=== PATIENT | female | born 1975 | race Caucasian/White ===

== ENCOUNTER 2020-08-26 00:02 | Emergency (ER) | payer OTHER ==
[~2020-08-26] VITALS: Ht 157.5 cm; Wt 88.6 kg
--- NOTE | 2020-08-26 00:08 | NUR ---
PT BIBA FROM [facility] FOR BEING TOO INTOXICATED TO CARE FOR HERSELF, EMS STATED PT AND WERE GETTING KICKED OUT OF [facility] AND PT WAS IN BATHROOM JUST THROWING UP ALL OVER THE PLACE, PT ARRIVED TO ER A/OX4, COVERED IN VOMIT AND SMELLING OF ALCOHOL, PT APOLOGETIC FOR SMELLING BAD, PT NAD AT THIS TIME
[2020-08-26] MEDS ORDERED: ONDANSETRON ODT 4 MG PO ONE (00:30)
[2020-08-26] MEDS ORDERED: PLEASE ENTER ALLERGIES MC SCH (00:30)
--- NOTE | 2020-08-26 00:34 | NUR ---
PT ASLEEP IN BED, ALL NEEDS IN REACH, CALL LIGHT IN REACH, NAD AT THIS TIME
--- NOTE | 2020-08-26 01:14 | NUR ---
PT ASLEEP IN BED, ALL NEEDS IN REACH, CALL LIGHT IN REACH, NAD AT THIS TIME
--- NOTE | 2020-08-26 02:30 | NUR ---
PT ASLEEP IN BED, ALL NEEDS IN REACH, CALL LIGHT IN REACH, NAD, VSS
--- NOTE | 2020-08-26 02:37 | NUR ---
PT AWAKE, A/OX4, PT TO BE DISCHARGED, PT STATES SHE IS FEELING MUCH BETTER AND IS GOOD TO GO HOME
[2020-08-26] MEDS ORDERED: ONDANSETRON ODT 4 MG ONE (02:53)
--- NOTE | 2020-08-26 03:44 | NUR ---
PT LAYING IN BED, VSS, PT STATES HER KIDS ARE ON THE WAY TO PICK HER UP NOW
--- NOTE | 2020-08-26 04:45 | NUR ---
PT ASLEEP IN BED, ALL NEEDS IN REACH, CALL LIGHT IN REACH, NAD
[2020-08-26 05:05] VITALS: BP 109/62
== END 2020-08-26 05:17 | disposition home or self-care (01) ==
LOC: ED 05:00
DX: F10.120 Alcohol abuse with intoxication, uncomplicated (principal); R11.2 Nausea with vomiting, unspecified; Y90.0 Blood alcohol level of less than 20 mg/100 ml
CPT/HCPCS: 99283